=== PATIENT | female | born 1985 | race Caucasian/White ===

== ENCOUNTER 2016-07-20 23:22 | Emergency (ER) | payer BC, OTHER ==
[~2016-07-20] VITALS: Ht 154.9 cm; Wt 64.0 kg
[~2016-07-20 23:22] MED LIST: FAMO-90 PO; PREN-385 PO
[2016-07-20 23:36] VITALS: BP 108/69
--- NOTE | 2016-07-21 00:20 | NUR ---
Note tommyone in EDM - 07/21/16 at 0445 by MED Patient discharged with v/s stable. Written and verbal after care instructions given and explained. Patient alert, oriented and verbalized understanding of instructions. Ambulatory with steady gait. All questions addressed prior to discharge. ID band removed. Patient advised to follow up with PMD. Rx of KEFLEX 500 MG given. Patient educated on indication of medication including possible reaction and side effects. Opportunity to ask questions provided and answered.
[2016-07-21 01:03] LABS: BASOPHILS # (AUTO) 0.1 K/uL (0.00-0.22); BASOPHILS % (AUTO) 1.2 % (0.0-2.0); EOSINOPHILS # (AUTO) 0.2 K/uL (0-0.4); EOSINOPHILS % (AUTO) 2.3 % (0.0-4.0); HEMATOCRIT 38.1 % (36-48); HEMOGLOBIN 12.8 g/dL (12.0-16.0); LYMPHOCYTES # (AUTO) 2.5 K/uL (2.5-16.5); MEAN CORPUSCULAR HEMOGLOBIN 31 pg (27-31); MEAN CORPUSCULAR HGB CONC 34 g/dL (33-37); MEAN CORPUSCULAR VOLUME 94 fL (80-94); MONOCYTES # (AUTO) 0.4 K/uL (0.8-1.0); MONOCYTES % (AUTO) 4.5 % (1.7-9.3); PLATELET COUNT (AUTO) 217 K/uL (140-450); RED BLOOD CELL COUNT(AUTO) 4.07 MIL/uL (4.20-5.40); RED CELL DISTRIBUTION WIDTH 11.4 % (11.6-13.7); WHITE BLOOD COUNT (AUTO) 8.2 K/uL (4.8-10.8)
[2016-07-21 01:06] LABS: APPEARANCE,URINE SL CLOUDY (CLEAR); BILIRUBIN,URINE NEGATIVE (NEGATIVE); BLOOD, URINE 3+ (NEGATIVE); COLOR,URINE YELLOW (YELLOW); LEUKOCYTE ESTERASE ,URINE TRACE (NEGATIVE); NITRITE, URINE NEGATIVE (NEGATIVE); PH,URINE 6.5 (5.0-9.0); PROTEIN,URINE NEGATIVE (NEGATIVE); UGLUCOSE NEGATIVE (NEGATIVE); UROBILINOGEN,URINE 0.2 EU/dL (0.2 - 1)
[2016-07-21 01:34] LABS: BACTERIA,URINE FEW /HPF (None Seen); SQUAMOUS EPITHELIAL CELL,UR 0-3 (FEW) /LPF (0-3 (FEW))
--- NOTE | 2016-07-21 01:39 | NUR ---
PT TAKEN TO [facility] FROM [facility]
--- NOTE | 2016-07-21 01:51 | NUR ---
PT RETURN FROM [facility] TO LOBBY
--- NOTE | 2016-07-21 03:36 | NUR ---
PT TAKEN TO BED 7
--- NOTE | 2016-07-21 03:40 | NUR ---
31Y/F PATIENT PRESENTS TO ED WITH C/O ABNORMAL BLEEDING . PT STATES VAG BLEEDING , 3 MONTHS , STARTED TODAY 2230 HOURS. LMP 1.28. DENIES N/V/D; SKIN IS PINK/WARM/DRY; AAOX4 WITH EVEN AND STEADY GAIT; LUNGS CLEAR BL; HR EVEN AND REGULAR; PT DENIES ANY FEVER, CP, SOB, OR COUGH AT THIS TIME; PATIENT STATES PAIN OF 0/10 AT THIS TIME; VSS; PATIENT POSITIONED FOR COMFORT; HOB ELEVATED; BEDRAILS UP X2; BED DOWN. ER MD MADE AWARE OF PT STATUS.
--- NOTE | 2016-07-21 03:47 | NUR ---
Dr. Mclain evaluating patient at bedside.
--- NOTE | 2016-07-21 03:50 | NUR ---
Female Hobbing Machine Operator accompanied female patient for Pelvic Exam. DR. MELVIN
--- NOTE | 2016-07-21 04:20 | NUR ---
Patient discharged with v/s stable. Written and verbal after care instructions given and explained. Patient alert, oriented and verbalized understanding of instructions. Ambulatory with steady gait. All questions addressed prior to discharge. ID band removed. Patient advised to follow up with PMD. Rx of KEFLEX 500 MG given. Patient educated on indication of medication including possible reaction and side effects. Opportunity to ask questions provided and answered.
[2016-07-21 04:24] VITALS: BP 110/70
== END 2016-07-21 04:20 | disposition home or self-care (01) ==
LOC: MED 23:22
DX: O20.0 Threatened abortion (principal); Z3A.11 11 weeks gestation of pregnancy; O23.41 Unspecified infection of urinary tract in pregnancy, first trimester
CPT/HCPCS: 36415; 76801; 81001; 84702; 85025; 86900; 86901; 99285

== ENCOUNTER 2017-02-22 11:47 | Emergency (ER) | payer BC, OTHER ==
[~2017-02-22] VITALS: Ht 162.6 cm; Wt 73.9 kg
[2017-02-22 12:55] VITALS: BP 108/73
--- NOTE | 2017-02-22 13:17 | NUR ---
Patient to bed 08.
--- NOTE | 2017-02-22 13:35 | NUR ---
PT BACK FROM CT VIA WHEELCHAIR
--- NOTE | 2017-02-22 13:35 | NUR ---
BIB WITH C/O HEAD ACHE, BL EAR ACHE, STOMACH PAIN 11/12 WITH NAUSEA; DENIES V/D; JUST DELIVERED HEALTHY BABY 02/04/2017; HX; DENIES,SKIN IS PINK/WARM/DRY; AAOX4 WITH EVEN AND STEADY GAIT; LUNGS CLEAR BL; HR EVEN AND REGULAR; PT DENIES ANY FEVER, CP, SOB, OR COUGH AT THIS TIME; PATIENT POSITIONED FOR COMFORT; HOB ELEVATED; BEDRAILS UP X2; BED DOWN.
--- NOTE | 2017-02-22 13:44 | NUR ---
DR. ESPINOZA AT BEDSIDE
[2017-02-22] MEDS ORDERED: NACL 0.9% 1,000 ML IV ONE (13:50)
[2017-02-22] MEDS ORDERED: KETOROLAC 30 MG/ML VIAL IVP ONE (13:50)
--- NOTE | 2017-02-22 14:03 | NUR ---
CHARGE NURSE AT BEDSIDE INSERTING IV
[2017-02-22 14:18] LABS: BASOPHILS # (AUTO) 0.1 K/uL (0.00-0.22); BASOPHILS % (AUTO) 2.4 % (0.0-2.0); EOSINOPHILS # (AUTO) 0.1 K/uL (0-0.4); EOSINOPHILS % (AUTO) 1.8 % (0.0-4.0); HEMATOCRIT 38.8 % (36-48); HEMOGLOBIN 13.3 g/dL (12.0-16.0); LYMPHOCYTES # (AUTO) 1.8 K/uL (2.5-16.5); LYMPHOCYTES % (AUTO) 31.5 % (20.5-51.1); MEAN CORPUSCULAR HEMOGLOBIN 33 pg (27-31); MEAN CORPUSCULAR HGB CONC 34 g/dL (33-37); MEAN CORPUSCULAR VOLUME 97 fL (80-94); MONOCYTES # (AUTO) 0.2 K/uL (0.8-1.0); MONOCYTES % (AUTO) 3.7 % (1.7-9.3); NEUTROPHILS # (AUTO) 3.6 K/uL (1.8-7.7); NEUTROPHILS % (AUTO) 60.6 % (42.2-75.2); PLATELET COUNT (AUTO) 243 K/uL (140-450); RED BLOOD CELL COUNT(AUTO) 4.02 MIL/uL (4.20-5.40); WHITE BLOOD COUNT (AUTO) 5.8 K/uL (4.8-10.8)
[2017-02-22 14:38] LABS: PROTHROMBIN TIME 10.5 secs (10.8-13.4)
[2017-02-22 14:49] LABS: ALBUMIN 3.4 g/dL (3.4-5.0); ANION GAP 11.8 (8-16); CARBON DIOXIDE 27.8 mmol/L (21-32); CREATININE 0.8 mg/dL (0.6-1.3); POTASSIUM 3.6 mmol/L (3.5-5.1); TOTAL BILIRUBIN 0.3 mg/dL (0.0-1.0)
--- NOTE | 2017-02-22 15:00 | NUR ---
US AT BEDSIDE
[2017-02-22 16:06] VITALS: BP 100/64
--- NOTE | 2017-02-22 16:10 | NUR ---
Patient discharged with v/s stable. Written and verbal after care instructions given and explained. Patient alert, oriented and verbalized understanding of instructions. Ambulatory with steady gait. All questions addressed prior to discharge. ID band removed. Patient advised to follow up with PMD. Rx of MOTRIN given. Patient educated on indication of medication including possible reaction and side effects. Opportunity to ask questions provided and answered. PT AWARE NEED TO FOLLOW UP WITH MD AND PT AGREED WITH IT
== END 2017-02-22 16:10 | disposition home or self-care (01) ==
LOC: MED 11:47
DX: O72.1 Other immediate postpartum hemorrhage (principal); Z79.899 Other long term (current) drug therapy
CPT/HCPCS: 36415; 70450; 76856; 80053; 81002; 81025; 85025; 85610; 85730; 96361; 96374; 99285; J1885; J7030; Q0092

== ENCOUNTER 2019-04-06 18:05 | Emergency (ER) | payer SELFPAY ==
[~2019-04-06] VITALS: Ht 162.6 cm; Wt 64.9 kg
[2019-04-06 18:44] VITALS: BP 109/79
--- NOTE | 2019-04-06 19:18 | NUR ---
PATIENT ASSESSMENT COMPLETED AT THIS TIME FOR HEADACHE. PATIENT SITTING UP IN CHAIR. NO NEEDS ADDRESSED AT THIS TIME.
[2019-04-06] MEDS ORDERED: KETOROLAC 30 MG/ML VIAL IM ONE (19:35)
[2019-04-06] MEDS ORDERED: MECLIZINE 25 MG TAB PO ONE (19:35)
[2019-04-06 19:55] VITALS: BP 109/79
--- NOTE | 2019-04-06 19:55 | NUR ---
Patient discharged with v/s stable. Written and verbal after care instructions given and explained. Patient alert, oriented and verbalized understanding of instructions. Ambulatory with steady gait. All questions addressed prior to discharge. ID band removed. Patient advised to follow up with PMD. Rx of ACETAMINOPHEN, MECLIZINE, OMEPRAZOLE given. Patient educated on indication of medication including possible reaction and side effects. Opportunity to ask questions provided and answered.
== END 2019-04-06 19:55 | disposition home or self-care (01) ==
LOC: MED 18:05
DX: G44.209 Tension-type headache, unspecified, not intractable (principal); K21.9 Gastro-esophageal reflux disease without esophagitis; R42 Dizziness and giddiness; Z79.899 Other long term (current) drug therapy
CPT/HCPCS: 96372; 99283; J1885; J8597